=== PATIENT | female | born 1955 | race Caucasian/White ===

== ENCOUNTER → 2017-04-16 | Outpatient (CLI) | payer OTHER | LOC: US 09:45 | DX: R74.8 Abnormal levels of other serum enzymes (principal); K82.9 Disease of gallbladder, unspecified | CPT/HCPCS: 76705 ==

== ENCOUNTER → 2022-03-12 | Outpatient (CLI) | payer OTHER ==
[~2022-03-12] MED LIST: ASPIRIN CHEWABL81 MG PO; CITALOPRAM HBR40 MG PO; COLACE 100MG C100 MG PO; ECOTRIN81 MG PO; IMDUR ER TAB 3030 MG PO; MELOXICAM7.5 MG PO; METOPROLOL SUCC50 MG PO; NITROSTAT 0.40.4 MG SL; NITROSTAT0.4 MG SL; NORCO 7.5-3251 EACH PO; PANTOPRAZOLE SO40 MG PO; PREDNISONE20 MG PO; SIMVASTATIN40 MG PO
== END ==
LOC: KOH-I 13:26
DX: M47.26 Other spondylosis with radiculopathy, lumbar region (principal); M54.50 Low back pain, unspecified; R29.898 Other symptoms and signs involving the musculoskeletal system
CPT/HCPCS: 72100